=== PATIENT | male | born 1935 | race Caucasian/White ===

== ENCOUNTER 2016-11-02 16:45 | Inpatient (IN) ==
--- NOTE | 2016-11-02 17:56 | Emergency Department Note ---
John Valentine Hilary, am scribing for, and in the presence of, Tyler Ferris MD 17:26. Josy Valentine Phillip K, MD, personally performed the services described in this documentation, ascribed by Flora Lopez in my presence, and it is both accurate and complete [id number] . Arrival - Arrival ED Nursing Triage Note: Brought in by EMS c/o productive cough, congestion, and SOB-onset yesterday. Mode of Arrival: Stretcher Limitations: No Limitations Source: Patient, RN Notes Reviewed - History of Present Illness Onset (ago): day(s) Consistency: constant Severity: mild Severity scale (1-10): 1 <Tyler Ferris - Last Filed: 11/02/16 17:56> <Antoni Gonsalez - Last Filed: 11/02/16 19:36> - Arrival Chief Complaint: Shortness of Breath Stated Complaint: shortness of breath - History of Present Illness HPI Narrative: Pt is a 80 y/o male brought into the ED with c/o SOB and cough which onset yesterday. Pts daughter states that he is spitting up a lot of phlegm, congested , cough and SOB but he denies abdominal pain. She states that he has alzheimers and takes medication for that only. No other complaints or problems stated in the ED. (Flora Lopez) Pt is a 80 y/o male brought into the ED with c/o SOB and cough which onset yesterday. Pts daughter states that he is spitting up a lot of phlegm, congested , cough and SOB but he denies abdominal pain. She states that he has alzheimers and takes medication for that only. No other complaints or problems stated in the ED. (Tyler Ferris) Allergies/Adverse Reactions: Allergies Allergy/AdvReac Type Severity Reaction Status Date / Time No Known Allergies Allergy Verified 04/28/15 11:12 Home Medications: Home Medications Medication Instructions Recorded Confirmed Type Donepezil [Aricept] 10 mg PO BEDTIME #60 tablet 10/10/14 11/02/16 Rx Memantine [Namenda] 10 mg PO BID #60 tablet 10/10/14 11/02/16 Rx Sertraline [Zoloft] 25 mg PO DAILY #30 tablet 10/10/14 11/02/16 Rx OLANZapine TAB [ZyPREXA Tab] 2.5 mg PO BID 11/02/16 11/02/16 History Review of System - Review of System 12 point system: reviewed and no additional remarkable complaints except as stated - Review of System Constitutional: Absent: fever Respiratory: Present: cough, respiratory distress (SOB), other (congestion) Gastrointestinal: Absent: abdominal pain <Tyler Ferris - Last Filed: 11/02/16 17:56> Medical,Surgical,& Family Hx - Medical History Cardio: History of: Hypertension No history of: Aneurysm, Cardiac Dysrhythmia, Cerebrovascular Disease, Congenital Heart Disease, CHF, CAD, [place], Pacemaker, PVD, Valvular Heart Disease, Cardiovascular Problems Psychological: History of: Psychiatric/Substance Abuse Tx (alliance), Psychiatric Problems (DEMENTIA) No history of: Anxiety Disorders, ADHD, Behavior Problems, Bipolar Disorder, Depression, Previous Suicide Attempt, Schizophrenia, Violent Behavior Neurology: History of: Dementia No history of: Brain Aneurysm, Cerebral Hemorrhage, Cerebrovascular Accident , Cerebral Palsy, Migraine, Multiple Sclerosis, Parkinson's Disease, Peripheral Neuropathy, Seizures, TIA, Vertigo, Neurologocal Cancer HEENT: No history of: Ear Problem, Eye Problem, Dental Problems, Glaucoma, Oral Cancer, HEENT Problems Endocrine: History of: Diabetes Mellitus (NIDDM), Dyslipidemia No history of: Adrenal Disease, Diabetes Mellitus (IDDM), Thyroid Disorder, Endocrine Cancer, Endocrine Problems Rheumatology: No history of;: Fibromyalgia, Gout, Myasthenia Gravis, Psoriasis, Rheumatoid Arthritis, Sjogrens, Systemic Lupus Erythematosus, Rheumatological Problems Respiratory: No history of: Asthma, Bronchitis, COPD, Intubation, Obstructive Sleep Apnea , Pulmonary Embolism, Pulmonary Hypertension, Pneumonia, Lung Cancer, Respiratory Problems Renal: No history of: Renal (Kidney) Cancer, Dialysis, Renal Failure, Renal Problems Genitourinary: No history of: Bladder Problem, Kidney Stones, Prostate Problems, Recurring Urinary Tract Infections, Genitourinary Cancer, Problems Gastrointestinal: No history of: Bowel Obstruction, Clostridium Difficile, Crohn's Disease, Diverticulitis/ Diverticulosis, Esophageal Varices, GERD, Gastrointestinal Bleed , Hemorrhoids, Hematochezia, Hepatitis, Liver Problems, Pancreatitis, Polyps, Ulcerative Colitis, Gastrointestinal Cancer, GI Problems Musculoskeletal: No history of: Amputation, Back/Neck Problems, Degenerative Disk Disease, Herniated Disk, Osteoporosis, Musculoskeletal Cancer, Musculoskeletal Problems Hematology: No history of: Anemia, Blood Transfusion Reaction, Bleeding Problems, Clotting Problems, Sickle Cell Disease, Hematologic Cancer, Blood Disorders Reproductive: No histroy: Penile Disorder, Sexually Transmitted Disease, Reproductive Cancer, Reproductive Problems Other: No history of: Anesthesia Reactions, Anaphylaxis, Cancer, Eczema, HIV, Malignant Hyperthermia, MRSA, Vancomycin-Resistant Enterococci, Skin Problems, Miscellaneous Medical Problems - Surgical History Cardiac Surgeries: Patient Denies: Femoral-Popliteal Bypass Graft, Cardiac Catheterization, Cardiac Surgery, Carotid Endarterectomy, Internal Defibrillator, Vascular Access Devices Thoracic Surgeries: Patient denies;: Kidney (Renal Surgery), Lithotripsy, Nephrectomy, Organ Transplant, Lobectomy Neurologic Surgeries: Patient denies: Brain Aneurysm, Cerebral Hemorrhage, Neurologic Surgery HEENT Surgeries: Patient denies: Carotid Endarterectomy, Eye Surgery, Thyroid Surgery, Tonsilectomy & Adenoidectomy Abdominal Surgeries: Patient denies: Abdominal Surgery, Appendectomy, Cholecystectomy, Colonoscopy , Gastric Bypass Surgery, EGD, Hernia Repair, Splenectomy Reproductive Surgeries: Patient denies;: Breast Surgery, Cystoscopy, Genitourinary Surgery, Prostate Surgery, Vasectomy Orthopedic Surgeries: Patient denies;: Implanted Devices, Orthopedic Surgery, Spinal Surgery, Total Hip Replacement, Total Knee Replacement - Family History Family History: Reports;: Family Cancer (sisters breast, daughter breast and ovaries), Family Psychiatric Problems (son and grandson learning disability, grandson -bipolar), Family Stroke (dad and sister) Denies;: Family Anesthesia Reaction, Family Diabetes, Family Heart Disease, Family Hypertension - Social History Smoking Status: Former smoker Frequency of Alcohol Use: None Type of Drug Use: None <Tyler Ferris - Last Filed: 11/02/16 17:56> Exam - General General appearance: alert, in no apparent distress - Head Head exam: Present: atraumatic, normocephalic - Eye Eye exam: Present: normal appearance, PERRL, EOMI - ENT ENT exam: Present: mucous membranes moist, TM's normal bilaterally. Absent: mucous membranes dry - Neck Neck exam: Present: full ROM, trachea midline, tenderness - Chest Chest inspection: Present: symmetric chest wall rise. Absent: tenderness - Respiratory Respiratory exam: Present: rales (diffused in bases). Absent: respiratory distress - Cardiovascular Cardiovascular exam: Present: regular rate, normal rhythm, normal heart sounds. Absent: murmur, rubs, gallop - Abdominal Exam Abdominal exam: Present: soft, normal bowel sounds. Absent: distention, tenderness - Extremities Exam Extremities exam: Present: full ROM. Absent: tenderness - Back Exam Back exam: Present: full ROM. Absent: tenderness - Neurological Exam Neurological exam: Present: alert, oriented X3, CN II-XII intact. Absent: motor sensory deficit - Psychiatric Psychiatric exam: Present: normal affect, normal mood - Skin Skin exam: Present: warm, dry, intact, normal color. Absent: rash <Tyler Ferris - Last Filed: 11/02/16 17:56> Vital Signs: Vital Signs Temperature 96.1 F L 11/02/16 16:52 Pulse Rate 83 11/02/16 18:45 Respiratory Rate 18 11/02/16 18:45 Blood Pressure 129/51 11/02/16 18:45 O2 Sat by Pulse Oximetry 98 11/02/16 18:45 Course <Tyler Ferris - Last Filed: 11/02/16 17:56> - Consultations Time: 19:33 <Antoni Gonsalez - Last Filed: 11/02/16 19:36> Course Narrative: Patient signed out to Dr. Gonsalez at 1800 (Tyler Ferris) - Consultations Consultation #1: Hospitalist will admit patient (Antoni Gonsalez) Results - Labs CBC & BMP: 11/02/16 17:41 11/02/16 17:41 <Antoni Gonsalez - Last Filed: 11/02/16 19:36> Disposition <Tyler Ferris - Last Filed: 11/02/16 17:56> Case discussed with: patient, patient's family Time of Disposition: 19:36 <Antoni Gonsalez - Last Filed: 11/02/16 19:36> Clinical Impression: Dementia of Alzheimer's type with behavioral disturbance, Community acquired pneumonia, Acute bronchiolitis, Acute dyspnea Disposition: Still a Patient Condition: Guarded
[2016-11-02 18:04] LABS: Basophils % 0.2 % (0.0-0.8); Eosinophils % 0.1 % (0.00-10.9); Hematocrit 41.1 VOL% (42.0-52.0); Hemoglobin 13.9 GM/DL (14.0-18.0); Immature Granulocytes % 0.4 %; Immature Granulocytes Absolute 0.04 #; Lymphocytes # 0.8 10*3/uL (1.4-4.0); Lymphocytes % 8.3 % (21.2-54.2); Mean Corpuscular HGB Conc 33.8 GM/DL (32-36); Mean Corpuscular Hemoglobin 33 PG (27-34); Mean Corpuscular Volume 98.1 FL (87-102); Mean Platelet Volume 10.5 FL (9.6-12.0); Monocytes # 0.8 10*3/uL (0.11-0.8); Monocytes % 8.4 % (1.7-12.7); Neutrophils # 7.7 10*3/uL (1.4-7.4); Neutrophils % 82.6 % (38.7-73.9); Platelet Count 119 T/CUMM (130-400); Red Blood Count 4.19 MC/CUMM (3.8-5.5); Red Cell Distribution Width 13.3 % (9.3-17.3); White Blood Count 9.4 T/CUMM (4-12)
--- NOTE | 2016-11-02 18:10 | EKG Report ---
Stationary ECG Study [facility] ER Test Date: 11/02/2016 6:10:25 PM Pat Name: HALLEY LOPEZ Department: Room: Gender: M Security Intern: : 1935 Requested by: Tyler Rajan Order Number: [id number] Reading MD: GEOFFREY CHAWLA Intervals [place] Rate: 73 P: 78 VT: 179 QRS: 84 QRSD: 125 T: 61 QT: 428 QTc: 453 Interpretive Statements SINUS RHYTHM WITH OCCASIONAL SUPRAVENTRICULAR PREMATURE COMPLEXES RIGHT BUNDLE BRANCH BLOCK Electronically Signed On 11-02-16 19:25:01 CDT by GEOFFREY CHAWLA [email or web address]
--- NOTE | 2016-11-02 18:26 | XRay Report ---
Portable chest. Indication: Shortness of breath. Comparison: April 28, 2015. The heart is normal in size. The pulmonary vasculature is normal. The lung qureshi are clear. No pneumothorax or pleural effusion. Nipple shadows over the bases. Degenerative changes of the spinal column and shoulders. Impression: No acute abnormality. PROCEDURE INTERPRETED AT [facility] DEPARTMENT OF RADIOLOGY Final Report Signed by: Dr. Renate Dash
[2016-11-02 18:33] LABS: Albumin 3.7 G/DL (3.4-5.0); Bilirubin,Total 0.7 MG/DL (0.2-1.0); Calcium 8.7 MG/DL (8.5-10.1); Total Protein 7.3 G/DL (6.4-8.3)
[2016-11-02 18:34] LABS: Magnesium 2.2 MG/DL (1.8-2.4); Osmolality,Calculated 284.1 MOS/KG (273-304); Potassium 4.2 MMOL/L (3.5-5.1)
[2016-11-02 19:01] LABS: Apearance,Urine Slightly Hazy (Clear); Bacteria,Urine Occasional /HPF (Few); Bilirubin,Urine Negative (Negative); Blood, Urine Moderate mg/dL (Negative); Calcium Oxalate Crystals,Urine Occasional /HPF (Few); Glucose,Urine (UA) Negative (Negative); Ketones,Urine 5 mg/dL (Negative); Mucus,Urine Occasional /LPF (Occasional); Nitrite,Urine Negative (Negative); Protein,Urine 100 MG/DL; RBC,Urine 3 /HPF (0-4); Squamous Epithelial Cell,Urine Occasional /HPF (0-10); Urine Color Yellow (Yellow); Urine Specific Gravity 1.015 (1.001-1.035); Urine Urobilinogen < 2.0 EU/DL (0.2-1.0); WBC,Urine 7 /HPF (0-6)
[2016-11-02] MEDS ORDERED: cefTRIAXone 1,000 MG in SODIUM CHLORIDE 0.9% 100 ML IV STA (19:35)
[2016-11-02] MEDS ORDERED: AZITHROMYCIN INJ 500 MG in SODIUM CHLORIDE 0.9% 250 ML IV STA (19:35)
[2016-11-02] MEDS ORDERED: AZITHROMYCIN 500 MG VIAL IV ONE (19:43)
[2016-11-02] MEDS ORDERED: ALBUTEROL 2.5 MG/3 ML NEB RESP TX PRN (19:57)
[2016-11-02] MEDS ORDERED: ONDANSETRON 4 MG/2 ML VIAL IV PRN (19:57)
--- NOTE | 2016-11-02 20:11 | Hospitalist History & Physical ---
Assessment and Plan (1) Acute bronchiolitis Status: Acute Current Visit: Yes (2) Acute dyspnea Status: Acute Current Visit: Yes (3) Community acquired pneumonia Status: Acute Current Visit: Yes (4) Dementia of Alzheimer's type with behavioral disturbance Status: Acute Assessment and plan: Our plan for this patient will be admitting him to our service. Although his chest x-ray looks clear by physical exam he appears to have a bronchitis/ pneumonia. Start him on protocol with Rocephin and azithromycin. Have pulmonary to evaluate him for a bronchoscopy. Want to get a swallowing evaluation done on the patient while he is here. We have consulted speech therapy Current Visit: Yes History of Present Illness Chief complaint: O2 sats productive cough History of present illness: Mr. Marr is a 80 year old male with past medical history significant for Alzheimer's presents to our hospital with a chief complaint of cough. Patient' s daughter accompanies him he is a poor historian secondary to his Alzheimer's. There is no history of fever that we know of. He has been having cough 2 days with copious sputum. I was consulted to admit him to the emergency room. Patient's O2 sats have dropped while in the emergency room and he might need O2 supplementation upon discharge. Patient's daughter reports his Alzheimer's was diagnosed several years ago. He is to the point where he has a hard time identifying her. Home Medications Medication Instructions Recorded Confirmed Type Donepezil [Aricept] 10 mg PO BEDTIME #60 tablet 10/10/14 11/02/16 Rx Memantine [Namenda] 10 mg PO BID #60 tablet 10/10/14 11/02/16 Rx Sertraline [Zoloft] 25 mg PO DAILY #30 tablet 10/10/14 11/02/16 Rx OLANZapine TAB [ZyPREXA Tab] 2.5 mg PO BID 11/02/16 11/02/16 History Allergies Allergy/AdvReac Type Severity Reaction Status Date / Time No Known Allergies Allergy Verified 04/28/15 11:12 Medical,Surgical,& Family Hx - Medical History Cardio: History of: Hypertension No history of: Aneurysm, Cardiac Dysrhythmia, Cerebrovascular Disease, Congenital Heart Disease, CHF, CAD, [place], Pacemaker, PVD, Valvular Heart Disease, Cardiovascular Problems Psychological: History of: Psychiatric/Substance Abuse Tx (alliance), Psychiatric Problems (DEMENTIA) No history of: Anxiety Disorders, ADHD, Behavior Problems, Bipolar Disorder, Depression, Previous Suicide Attempt, Schizophrenia, Violent Behavior Neurology: History of: Dementia No history of: Brain Aneurysm, Cerebral Hemorrhage, Cerebrovascular Accident , Cerebral Palsy, Migraine, Multiple Sclerosis, Parkinson's Disease, Peripheral Neuropathy, Seizures, TIA, Vertigo, Neurologocal Cancer HEENT: No history of: Ear Problem, Eye Problem, Dental Problems, Glaucoma, Oral Cancer, HEENT Problems Endocrine: History of: Diabetes Mellitus (NIDDM), Dyslipidemia No history of: Adrenal Disease, Diabetes Mellitus (IDDM), Thyroid Disorder, Endocrine Cancer, Endocrine Problems Rheumatology: No history of;: Fibromyalgia, Gout, Myasthenia Gravis, Psoriasis, Rheumatoid Arthritis, Sjogrens, Systemic Lupus Erythematosus, Rheumatological Problems Respiratory: No history of: Asthma, Bronchitis, COPD, Intubation, Obstructive Sleep Apnea , Pulmonary Embolism, Pulmonary Hypertension, Pneumonia, Lung Cancer, Respiratory Problems Renal: No history of: Renal (Kidney) Cancer, Dialysis, Renal Failure, Renal Problems Genitourinary: No history of: Bladder Problem, Kidney Stones, Prostate Problems, Recurring Urinary Tract Infections, Genitourinary Cancer, Problems Gastrointestinal: No history of: Bowel Obstruction, Clostridium Difficile, Crohn's Disease, Diverticulitis/ Diverticulosis, Esophageal Varices, GERD, Gastrointestinal Bleed , Hemorrhoids, Hematochezia, Hepatitis, Liver Problems, Pancreatitis, Polyps, Ulcerative Colitis, Gastrointestinal Cancer, GI Problems Musculoskeletal: No history of: Amputation, Back/Neck Problems, Degenerative Disk Disease, Herniated Disk, Osteoporosis, Musculoskeletal Cancer, Musculoskeletal Problems Hematology: No history of: Anemia, Blood Transfusion Reaction, Bleeding Problems, Clotting Problems, Sickle Cell Disease, Hematologic Cancer, Blood Disorders Reproductive: No histroy: Penile Disorder, Sexually Transmitted Disease, Reproductive Cancer, Reproductive Problems Other: No history of: Anesthesia Reactions, Anaphylaxis, Cancer, Eczema, HIV, Malignant Hyperthermia, MRSA, Vancomycin-Resistant Enterococci, Skin Problems, Miscellaneous Medical Problems - Surgical History Cardiac Surgeries: Patient Denies: Femoral-Popliteal Bypass Graft, Cardiac Catheterization, Cardiac Surgery, Carotid Endarterectomy, Internal Defibrillator, Vascular Access Devices Thoracic Surgeries: Patient denies;: Kidney (Renal Surgery), Lithotripsy, Nephrectomy, Organ Transplant, Lobectomy Neurologic Surgeries: Patient denies: Brain Aneurysm, Cerebral Hemorrhage, Neurologic Surgery HEENT Surgeries: Patient denies: Carotid Endarterectomy, Eye Surgery, Thyroid Surgery, Tonsilectomy & Adenoidectomy Abdominal Surgeries: Patient denies: Abdominal Surgery, Appendectomy, Cholecystectomy, Colonoscopy , Gastric Bypass Surgery, EGD, Hernia Repair, Splenectomy Reproductive Surgeries: Patient denies;: Breast Surgery, Cystoscopy, Genitourinary Surgery, Prostate Surgery, Vasectomy Orthopedic Surgeries: Patient denies;: Implanted Devices, Orthopedic Surgery, Spinal Surgery, Total Hip Replacement, Total Knee Replacement - Family History Family History: Reports;: Family Cancer (sisters breast, daughter breast and ovaries), Family Psychiatric Problems (son and grandson learning disability, grandson -bipolar), Family Stroke (dad and sister) Denies;: Family Anesthesia Reaction, Family Diabetes, Family Heart Disease, Family Hypertension - Social History Smoking Status: Former smoker Frequency of Alcohol Use: None Type of Drug Use: None ROS unobtainable: due to mental status Exam - Constitutional Vitals: Period Temp Pulse Resp BP Sys/[place] Pulse Ox Last 24 Hr 96.1 F-96.1 F 82-93 18-20 114-135/46-64 92-100 General appearance: normal weight - Head Head exam: Present: normal inspection - Eye Eye exam: Present: EOMI Pupils: Present: TORREY - ENT ENT exam: Present: normal exam - Neck Neck exam: Present: normal inspection - Respiratory Respiratory exam: Present: rhonchi - Cardiovascular Cardiovascular exam: Present: regular rate and rhythm - GI/Abdominal GI/Abdominal exam: Present: normal bowel sounds - Extremities Exam Extremities exam: Present: normal inspection - Back Exam Back exam: Present: normal inspection - Neurological Exam Neurological exam: Present: alert - Psychiatric Psychiatric exam: Present: flat affect - Skin Skin exam: Present: normal color Results - Labs CBC & BMP: 11/02/16 17:41 11/02/16 17:41
[2016-11-02 21:40] LABS: ABG Base Excess 0.7 MMOL/L (-2.5-2.5); ABG HCO3 24.4 MMOL/L (20-26); ABG Oxygen Saturation 69.1 % (95-100); ABG PCO2 45.5 MM HG (35-48); ABG PH 7.371 (7.35-7.45); ABG TCO2 23.2 MMOL/L (23-27)
[2016-11-02 21:48] LABS: Platelet Estimate Decreased
[2016-11-02 22:02] LABS: ABG PO2 36.1 MM HG (80-95)
[2016-11-02] MEDS ORDERED: MORPHINE 2 MG/1 ML SYRINGE IM PRN (22:13)
[2016-11-02] MEDS ORDERED: cefTRIAXone 1,000 MG VIAL ONE (22:31)
[2016-11-02] MEDS ORDERED: ALBUTEROL/IPRATROPIUM 3 ML NEB RESP TX STA (23:34)
[2016-11-02] MEDS: ALBUTEROL/IPRATROPIUM 3 ML NEB RESP TX SCH (23:34)
[2016-11-03] MEDS: DONEPEZIL 5 MG TABLET PO SCH ×2 (00:04→22:23)
[2016-11-03] MEDS: MEMANTINE 10 MG TABLET PO SCH ×3 (00:05→22:23)
[2016-11-03] MEDS: OLANZapine 2.5 MG TABLET PO SCH ×3 (00:05→22:23)
[2016-11-03] MEDS: ENOXAPARIN 40 MG/0.4 ML SYRINGE SUBCUT SCH ×2 (00:05→22:24)
[2016-11-03] MEDS ORDERED: ACETAMINOPHEN 650 MG SUPP RECTAL PRN (04:08)
[2016-11-03 04:18] LABS: Basophils % 0.2 % (0.0-0.8); Hematocrit 39.4 VOL% (42.0-52.0); Hemoglobin 13.1 GM/DL (14.0-18.0); Immature Granulocytes % 0.3 %; Immature Granulocytes Absolute 0.02 #; Lymphocytes # 0.5 10*3/uL (1.4-4.0); Lymphocytes % 8.5 % (21.2-54.2); Mean Corpuscular HGB Conc 33.2 GM/DL (32-36); Mean Corpuscular Hemoglobin 32 PG (27-34); Mean Corpuscular Volume 96.8 FL (87-102); Monocytes # 0.5 10*3/uL (0.11-0.8); Monocytes % 8.9 % (1.7-12.7); NRBC # 0.02 10*3/uL; Neutrophils # 4.7 10*3/uL (1.4-7.4); Neutrophils % 82.1 % (38.7-73.9); Platelet Count 131 T/CUMM (130-400); Red Blood Count 4.07 MC/CUMM (3.8-5.5); Red Cell Distribution Width 13.4 % (9.3-17.3); White Blood Count 5.8 T/CUMM (4-12)
[2016-11-03 04:44] LABS: Calcium 8.7 MG/DL (8.5-10.1)
[2016-11-03] MEDS: SODIUM CHLORIDE 0.9% 1,000 ML IV SCH ×2 (04:52→16:12)
[2016-11-03 04:54] LABS: Platelet Estimate Adequate
[2016-11-03] MEDS: ALBUTEROL/IPRATROPIUM 3 ML NEB RESP TX SCH ×3 (07:26→19:18)
[2016-11-03] MEDS: SERTRALINE 25 MG TABLET PO SCH (10:05)
[2016-11-03] MEDS: PANTOPRAZOLE 40 MG TABLET PO SCH (10:06)
--- NOTE | 2016-11-03 11:02 | Hospitalist Progress Note ---
Assessment and Plan (1) Dementia of Alzheimer's type with behavioral disturbance Status: Chronic Current Visit: Yes (2) Community acquired pneumonia Status: Acute Assessment and plan: Continue azithromycin and rocephin duonebs Current Visit: Yes (3) Acute bronchiolitis Status: Acute Current Visit: Yes (4) Acute dyspnea Status: Acute Current Visit: Yes Hospitalist: Subjective Interval history: No acute events overnight. Patient seen asleep on cpap this morning. Will wake up and respond. He appears comfortable. Exam - Constitutional Vitals: Period Temp Pulse Resp BP Sys/[place] Pulse Ox Last 24 Hr 96.1 F-102.4 F 66-108 16-24 84-143/33-102 70-100 General appearance: normal weight - Head Head exam: Present: normocephalic, atraumatic - Eye Eye exam: Present: EOMI Pupils: Present: TORREY - ENT ENT exam: Present: normal exam - Neck Neck exam: Present: normal inspection - Respiratory Respiratory exam: Present: clear to auscultation bilaterally - Cardiovascular Cardiovascular exam: Present: regular rate and rhythm - GI/Abdominal GI/Abdominal exam: Present: normal bowel sounds, soft. Absent: tenderness, rebound - Extremities Exam Extremities exam: Present: normal inspection - Back Exam Back exam: Present: normal inspection - Skin Skin exam: Present: warm, intact Results - Labs CBC & BMP: 11/03/16 03:51 11/03/16 03:51
[2016-11-03] MEDS: AZITHROMYCIN INJ 500 MG in SODIUM CHLORIDE 0.9% 250 ML IV SCH (20:30)
[2016-11-03] MEDS: cefTRIAXone 1,000 MG in SODIUM CHLORIDE 0.9% 100 ML IV SCH (22:24)
[2016-11-04] MEDS: ALBUTEROL/IPRATROPIUM 3 ML NEB RESP TX SCH ×4 (01:08→19:23)
[2016-11-04 04:34] LABS: Basophils % 0.2 % (0.0-0.8); Hematocrit 35.8 VOL% (42.0-52.0); Hemoglobin 12.1 GM/DL (14.0-18.0); Immature Granulocytes % 0.3 %; Immature Granulocytes Absolute 0.02 #; Lymphocytes % 15.3 % (21.2-54.2); Mean Corpuscular HGB Conc 33.8 GM/DL (32-36); Mean Corpuscular Hemoglobin 34 PG (27-34); Mean Corpuscular Volume 99.2 FL (87-102); Mean Platelet Volume 11.2 FL (9.6-12.0); Monocytes # 0.6 10*3/uL (0.11-0.8); Monocytes % 9.5 % (1.7-12.7); Neutrophils # 4.6 10*3/uL (1.4-7.4); Neutrophils % 74.7 % (38.7-73.9); Platelet Count 100 T/CUMM (130-400); Red Blood Count 3.61 MC/CUMM (3.8-5.5); Red Cell Distribution Width 13.6 % (9.3-17.3); White Blood Count 6.2 T/CUMM (4-12)
[2016-11-04 05:02] LABS: Calcium 8.6 MG/DL (8.5-10.1); Magnesium 2.2 MG/DL (1.8-2.4); Osmolality,Calculated 294.4 MOS/KG (273-304); Potassium 4.2 MMOL/L (3.5-5.1)
[2016-11-04] MEDS: OLANZapine 2.5 MG TABLET PO SCH ×2 (09:03→21:27)
[2016-11-04] MEDS: PANTOPRAZOLE 40 MG TABLET PO SCH (09:03)
[2016-11-04] MEDS: SERTRALINE 25 MG TABLET PO SCH (09:03)
[2016-11-04] MEDS: MEMANTINE 10 MG TABLET PO SCH ×2 (09:03→21:27)
--- NOTE | 2016-11-04 11:28 | Hospitalist Progress Note ---
Assessment and Plan (1) Dementia of Alzheimer's type with behavioral disturbance Status: Chronic Current Visit: Yes (2) Community acquired pneumonia Status: Acute Assessment and plan: Continue azithromycin and rocephin mikie Pulmonary has been consulted Discontinue bipap Current Visit: Yes (3) Acute bronchiolitis Status: Acute Current Visit: Yes (4) Acute dyspnea Status: Acute Current Visit: Yes Hospitalist: Subjective Interval history: No acute events overnight. Patient with bipap on. Will see how he does with it off today. Exam - Constitutional Vitals: Period Temp Pulse Resp BP Sys/[place] Pulse Ox Last 24 Hr 97.3 F-98.2 F 61-95 13-20 97-110/49-56 90-100 General appearance: normal weight - Head Head exam: Present: normocephalic, atraumatic - Eye Eye exam: Present: EOMI Pupils: Present: TORREY - ENT ENT exam: Present: normal exam - Neck Neck exam: Present: normal inspection - Respiratory Respiratory exam: Present: clear to auscultation bilaterally. Absent: wheezes - Cardiovascular Cardiovascular exam: Present: regular rate and rhythm - GI/Abdominal GI/Abdominal exam: Present: normal bowel sounds, soft. Absent: tenderness, rebound - Extremities Exam Extremities exam: Present: normal inspection - Back Exam Back exam: Present: normal inspection - Neurological Exam Neurological exam: Present: alert, oriented X3 - Psychiatric Psychiatric exam: Present: normal affect, normal mood - Skin Skin exam: Present: warm, intact Results - Labs CBC & BMP: 11/04/16 03:34 11/04/16 03:34
--- NOTE | 2016-11-04 13:42 | Pulmonology Consult Note ---
Assessment and Plan (1) Viral upper respiratory illness Status: Acute Assessment and plan: Patient clinically appears to have a viral infection. There is no indication for bronchoscopy, and especially not since he's comfort care. Patient should be set up with home hospice to avoid unnecessary ED visits and hospitalzations which don't really seem in line with that the family is saying he would want Recs: -Scopalamine drops or patch to dry up oral secretions -Sinus rinses and afrin prn for nasal congestion -Dc antibiotics -Wean down oxygen -DC any orders NOT focused on comfort (ie labs, rads, accuchecks, etc) Current Visit: Yes History of Present Illness History of present illness: Mr. Marr is a 80 year old male who presented to the ED, brought in by family for cough and shortness of breath. History mostly obtained from family at bedside. They report that several family members that patient lives with were sick with a viral illness and he shortly became ill afterwards. Patient, when he is able to answer, denies cough or shortness of breath at this time. He endorses some nasal passage blockage and sinus congestion. Family does confirm that he is comfort measures only Home Medications Medication Instructions Recorded Confirmed Type Donepezil [Aricept] 10 mg PO BEDTIME #60 tablet 10/10/14 11/03/16 Rx Memantine [Namenda] 10 mg PO BID #60 tablet 10/10/14 11/03/16 Rx Sertraline [Zoloft] 25 mg PO DAILY #30 tablet 10/10/14 11/03/16 Rx OLANZapine TAB [ZyPREXA Tab] 2.5 mg PO BID 11/02/16 11/03/16 History Allergies Allergy/AdvReac Type Severity Reaction Status Date / Time No Known Allergies Allergy Verified 04/28/15 11:12 ROS unobtainable: due to mental status Exam (Pulmonay) H&P - Constitutional Vitals: Period Temp Pulse Resp BP Sys/Merida Pulse Ox Last 24 Hr 97.3 F-98.2 F 61-93 13-20 97-110/49-56 90-100 General appearance: under weight - Head Head exam: Present: normal inspection - Respiratory Respiratory exam: Absent: accessory muscle use, rales, rhonchi, stridor, wheezes - Cardiovascular Cardiovascular exam: Present: regular rate and rhythm - GI/Abdominal GI/Abdominal exam: Present: normal bowel sounds Medical,Surgical,& Family Hx - Medical History Cardio: History of: Hypertension No history of: Aneurysm, Cardiac Dysrhythmia, Cerebrovascular Disease, Congenital Heart Disease, CHF, CAD, LA, Pacemaker, PVD, Valvular Heart Disease, Cardiovascular Problems Psychological: History of: Psychiatric/Substance Abuse Tx (alliance), Psychiatric Problems (DEMENTIA) No history of: Anxiety Disorders, ADHD, Behavior Problems, Bipolar Disorder, Depression, Previous Suicide Attempt, Schizophrenia, Violent Behavior Neurology: History of: Dementia No history of: Brain Aneurysm, Cerebral Hemorrhage, Cerebrovascular Accident , Cerebral Palsy, Migraine, Multiple Sclerosis, Parkinson's Disease, Peripheral Neuropathy, Seizures, TIA, Vertigo, Neurologocal Cancer HEENT: No history of: Ear Problem, Eye Problem, Dental Problems, Glaucoma, Oral Cancer, HEENT Problems Endocrine: History of: Diabetes Mellitus (NIDDM), Dyslipidemia No history of: Adrenal Disease, Diabetes Mellitus (IDDM), Thyroid Disorder, Endocrine Cancer, Endocrine Problems Rheumatology: No history of;: Fibromyalgia, Gout, Myasthenia Gravis, Psoriasis, Rheumatoid Arthritis, Sjogrens, Systemic Lupus Erythematosus, Rheumatological Problems Respiratory: No history of: Asthma, Bronchitis, COPD, Intubation, Obstructive Sleep Apnea , Pulmonary Embolism, Pulmonary Hypertension, Pneumonia, Lung Cancer, Respiratory Problems Renal: No history of: Renal (Kidney) Cancer, Dialysis, Renal Failure, Renal Problems Genitourinary: No history of: Bladder Problem, Kidney Stones, Prostate Problems, Recurring Urinary Tract Infections, Genitourinary Cancer, Problems Gastrointestinal: No history of: Bowel Obstruction, Clostridium Difficile, Crohn's Disease, Diverticulitis/ Diverticulosis, Esophageal Varices, GERD, Gastrointestinal Bleed , Hemorrhoids, Hematochezia, Hepatitis, Liver Problems, Pancreatitis, Polyps, Ulcerative Colitis, Gastrointestinal Cancer, GI Problems Musculoskeletal: No history of: Amputation, Back/Neck Problems, Degenerative Disk Disease, Herniated Disk, Osteoporosis, Musculoskeletal Cancer, Musculoskeletal Problems Hematology: No history of: Anemia, Blood Transfusion Reaction, Bleeding Problems, Clotting Problems, Sickle Cell Disease, Hematologic Cancer, Blood Disorders Reproductive: No histroy: Penile Disorder, Sexually Transmitted Disease, Reproductive Cancer, Reproductive Problems Other: No history of: Anesthesia Reactions, Anaphylaxis, Cancer, Eczema, HIV, Malignant Hyperthermia, MRSA, Vancomycin-Resistant Enterococci, Skin Problems, Miscellaneous Medical Problems - Surgical History Cardiac Surgeries: Patient Denies: Femoral-Popliteal Bypass Graft, Cardiac Catheterization, Cardiac Surgery, Carotid Endarterectomy, Internal Defibrillator, Vascular Access Devices Thoracic Surgeries: Patient denies;: Kidney (Renal Surgery), Lithotripsy, Nephrectomy, Organ Transplant, Lobectomy Neurologic Surgeries: Patient denies: Brain Aneurysm, Cerebral Hemorrhage, Neurologic Surgery HEENT Surgeries: Patient denies: Carotid Endarterectomy, Eye Surgery, Thyroid Surgery, Tonsilectomy & Adenoidectomy Abdominal Surgeries: Patient denies: Abdominal Surgery, Appendectomy, Cholecystectomy, Colonoscopy , Gastric Bypass Surgery, EGD, Hernia Repair, Splenectomy Reproductive Surgeries: Patient denies;: Breast Surgery, Cystoscopy, Genitourinary Surgery, Prostate Surgery, Vasectomy Orthopedic Surgeries: Patient denies;: Implanted Devices, Orthopedic Surgery, Spinal Surgery, Total Hip Replacement, Total Knee Replacement - Family History Family History: Reports;: Family Cancer (sisters breast, daughter breast and ovaries), Family Psychiatric Problems (son and grandson learning disability, grandson -bipolar), Family Stroke (dad and sister) Denies;: Family Anesthesia Reaction, Family Diabetes, Family Heart Disease, Family Hypertension - Social History Smoking Status: Former smoker Frequency of Alcohol Use: None Type of Drug Use: None Results - Labs CBC & BMP: 11/04/16 03:34 11/04/16 03:34 Lab Results: I have reviewed the past 24 hour labs - Diagnostic Findings Procedure: Chest x-ray: image reviewed by me (reviewed image and report. No evidence of pneumonia)
[2016-11-04] MEDS ORDERED: AZITHROMYCIN 250 MG TABLET PO SCH (21:00)
[2016-11-04] MEDS: DONEPEZIL 5 MG TABLET PO SCH (21:27)
[2016-11-04] MEDS: ENOXAPARIN 40 MG/0.4 ML SYRINGE SUBCUT SCH (21:27)
[2016-11-04] MEDS: cefTRIAXone 1,000 MG in SODIUM CHLORIDE 0.9% 100 ML IV SCH (21:28)
[2016-11-04] MEDS: AZITHROMYCIN INJ 500 MG in SODIUM CHLORIDE 0.9% 250 ML IV SCH (21:28)
[2016-11-04] MEDS: DESITIN 4OZ/NYSTATIN 15 GRAM MIXTURE PASTE TOP SCH (21:34)
[2016-11-05] MEDS: ALBUTEROL/IPRATROPIUM 3 ML NEB RESP TX SCH ×2 (02:52→07:26)
[2016-11-05 05:51] LABS: Basophils % 0.2 % (0.0-0.8); Hematocrit 33.5 VOL% (42.0-52.0); Hemoglobin 10.8 GM/DL (14.0-18.0); Immature Granulocytes % 0.7 %; Immature Granulocytes Absolute 0.04 #; Lymphocytes # 0.7 10*3/uL (1.4-4.0); Lymphocytes % 13.5 % (21.2-54.2); Mean Corpuscular HGB Conc 32.2 GM/DL (32-36); Mean Corpuscular Hemoglobin 33 PG (27-34); Mean Corpuscular Volume 101.5 FL (87-102); Mean Platelet Volume 11.4 FL (9.6-12.0); Monocytes # 0.5 10*3/uL (0.11-0.8); Monocytes % 9.1 % (1.7-12.7); Neutrophils # 4.1 10*3/uL (1.4-7.4); Neutrophils % 76.5 % (38.7-73.9); Platelet Count 116 T/CUMM (130-400); Red Cell Distribution Width 13.5 % (9.3-17.3); White Blood Count 5.4 T/CUMM (4-12)
[2016-11-05 06:14] LABS: Calcium 8.6 MG/DL (8.5-10.1); Magnesium 2.3 MG/DL (1.8-2.4); Potassium 3.7 MMOL/L (3.5-5.1)
[2016-11-05 06:55] LABS: Platelet Estimate Adequate
[2016-11-05] MEDS ORDERED: methylPREDNISolone SOD SUC 40 MG/1 ML VIAL IV SCH (09:00)
--- NOTE | 2016-11-05 09:01 | Pulmonology Progress Note ---
Pulmonary - PN: Subj Interval history: Patient is an 80-year-old white man who is very debilitated with dementia. He apparently has been bedridden and very confused for quite some time. He was brought in with an upper respiratory infection and bronchitis. He now has become poorly responsive. He apparently was using BiPAP over the weekend. Now he is on low-flow oxygen. He is not really responsive at present. He apparently did say a few words earlier. The family does not want heroic measures. He does not seem to be having any respiratory distress at the present time Exam (Progress Note) - Constitutional Vitals: Period Temp Pulse Resp BP Sys/Merida Pulse Ox Last 24 Hr 97.8 F-99.3 F 64-92 14-20 99-109/45-56 90-100 General appearance: under weight, other (He does look chronically ill but is lying comfortably in bed.) - Head Head exam: Present: normal inspection - Eye Eye exam: Absent: scleral icterus Pupils: Present: TORREY - ENT ENT exam: Present: other (He does have dry mucous membrane) - Neck Neck exam: Absent: lymphadenopathy, thyromegaly - Respiratory Respiratory exam: Present: accessory muscle use, rhonchi, other (He has fairly good breath sounds with just very minimal rhonchi.) - Cardiovascular Cardiovascular exam: Present: regular rate and rhythm. Absent: gallop, systolic murmur - GI/Abdominal GI/Abdominal exam: Present: hypoactive bowel sounds, soft. Absent: organomegaly , tenderness - Extremities Exam Extremities exam: Absent: calf tenderness, edema - Neurological Exam Neurological exam: Present: altered (Patient is not very alert at present) - Psychiatric Psychiatric exam: Absent: anxious - Skin Skin exam: Present: warm, dry Results - Labs CBC & BMP: 11/05/16 05:19 11/05/16 05:19 - Diagnostic Findings Procedure: Chest x-ray: image reviewed by me, report reviewed by me (Chest x- ray shows no definite infiltrate) Assessment and Plan (1) Dementia of Alzheimer's type with behavioral disturbance Status: Chronic Assessment and plan: The patient is an elderly man that looks chronically ill and has significant dementia. His family does not want heroic measures. Current Visit: Yes (2) Psychotic disorder Status: Acute Assessment and plan: Patient is not very responsive at the present time. Current Visit: No (3) Acute bronchiolitis Status: Acute Assessment and plan: The patient apparently had some respiratory distress earlier but is doing better now. He seems to be moving air fairly well. I will continue with respiratory therapy and medications and mainly try to keep him comfortable. Current Visit: Yes
[2016-11-05 09:07] VITALS: BP 114/56
[2016-11-05] MEDS: MEMANTINE 10 MG TABLET PO SCH (09:30)
[2016-11-05] MEDS: SERTRALINE 25 MG TABLET PO SCH (09:30)
[2016-11-05] MEDS: PANTOPRAZOLE 40 MG TABLET PO SCH (09:30)
[2016-11-05] MEDS: OLANZapine 2.5 MG TABLET PO SCH (09:30)
--- NOTE | 2016-11-05 09:35 | Hospitalist Progress Note ---
Assessment and Plan (1) Dementia of Alzheimer's type with behavioral disturbance Status: Chronic Current Visit: Yes (2) Community acquired pneumonia Status: Acute Assessment and plan: Continue azithromycin and rocephin duonebs Pulmonary assisting Discontinue bipap Current Visit: Yes (3) Acute bronchiolitis Status: Acute Current Visit: Yes (4) Acute dyspnea Status: Acute Current Visit: Yes Hospitalist: Subjective Interval history: Patient is now off Bipap. This morning he is not as responsive, with shallow respirations. One of his sons is present this morning and reiterates that the family does not want any heroic measures performed. Will continue to treat him for pneumonia and uti. Will also continue current respiratory therapy with duonebs and supplemental oxygen per family's request. Exam - Constitutional Vitals: Period Temp Pulse Resp BP Sys/Merida Pulse Ox Last 24 Hr 97.8 F-99.3 F 64-92 14-20 99-114/45-56 90-100 General appearance: normal weight - Head Head exam: Present: normocephalic, atraumatic - Eye Eye exam: Present: EOMI Pupils: Present: TORREY - ENT ENT exam: Present: normal exam - Neck Neck exam: Present: normal inspection - Respiratory Respiratory exam: Present: clear to auscultation bilaterally - Cardiovascular Cardiovascular exam: Present: regular rate and rhythm - GI/Abdominal GI/Abdominal exam: Present: normal bowel sounds, soft. Absent: tenderness, rebound - Extremities Exam Extremities exam: Present: normal inspection - Back Exam Back exam: Present: normal inspection - Neurological Exam Neurological exam: Present: alert, oriented X3 - Psychiatric Psychiatric exam: Present: normal affect, normal mood - Skin Skin exam: Present: warm, intact Results - Labs CBC & BMP: 11/05/16 05:19 11/05/16 05:19
--- NOTE | 2016-11-05 09:53 | XRay Report ---
Exam: XR chest 1V portable Date: 11/05/2016 8:43 AM Indication: Shortness of breath Comparison: 11/02/2016 Technical:AP Findings: Interstitial alveolar densities present in the basilar regions bilaterally with mild shunt vascularity. Low volume effusions. The heart is mildly prominent. Bony structures reveal no acute findings with lateral marginal osteophytes. Impression: 1. Interval development Bilateral interstitial alveolar densities that suggest component of CHF with shunt vascularity and tiny effusions PROCEDURE INTERPRETED AT [facility] DEPARTMENT OF RADIOLOGY Final Report Signed by: Dr. Toney Ramirez
[2016-11-05] MEDS ORDERED: DEXTROSE 5% NACL 0.45% 1,000 ML IV SCH (10:00)
[2016-11-05] MEDS ORDERED: ALBUTEROL/IPRATROPIUM 3 ML NEB RESP TX SCH (11:00)
[2016-11-05] MEDS: DESITIN 4OZ/NYSTATIN 15 GRAM MIXTURE PASTE TOP SCH (11:28)
--- NOTE | 2016-11-05 14:07 | Discharge Summary ---
Hospital Course - Hospital Course Hospital Course: Mr. Marr is a 80 year old male with past medical history significant for Alzheimer's who presented with a chief complaint of cough. Patient is a poor historian secondary to his Alzheimer's. His daughter provided the history. There is no history of fever that we know of. He had been having cough 2 days with copious sputum. He was admitted to the hospitalist service with acute bronchitis, pneumonia and a urinary tract infection. On admission he was placed on Bipap which was removed on his second day. He originally tolerated this well for over 24 hours. This morning patient noted to be less responsive with shallow breathing. Patient's family made aware of his poor prognosis. Patient's nurse was called to patient's room by family due to agonal breathing. Patient was comfort care, as confirmed by the family on several occasions. He was pronounced at 0959. His family was at his bedside. - Time spent with patient Time with patient DS: Less than 30 minutes (25) Diagnosis - Discharge Diagnosis (1) Dementia of Alzheimer's type with behavioral disturbance Status: Chronic (2) Community acquired pneumonia Status: Acute (3) Acute bronchiolitis Status: Acute (4) Acute dyspnea Status: Acute Discharge Plan - Discharge Data Disposition: - Discharge Medications No Action OLANZapine TAB [ZyPREXA Tab] 2.5 mg PO BID Donepezil [Aricept] 10 mg PO BEDTIME #60 tablet Memantine [Namenda] 10 mg PO BID #60 tablet Sertraline [Zoloft] 25 mg PO DAILY #30 tablet - Follow Up or Referral - Forms/Instructions Exam - Constitutional Vitals: Period Temp Pulse Resp BP Sys/Merida Pulse Ox Last 24 Hr 97.8 F-99.3 F 77-92 16-20 99-114/45-56 90-100 Discharge Results Procedures and tests throughout hospitalization: Pending Orders 11/02/16 17:41 Blood Culture Stat Labs on day of discharge: Labs from last 24 hours 11/05/16 11/05/16 05:19 05:19 WBC 5.4 RBC 3.30 L Hgb 10.8 L Hct 33.5 L MCV 101.5 MCH 33 MCHC 32.2 RDW 13.5 Plt Count 116 L MPV 11.4 Neut % (Auto) 76.5 H Lymph % (Auto) 13.5 L [place] % (Auto) 9.1 Eos % (Auto) 0.0 Baso % (Auto) 0.2 Neut # (Auto) 4.1 Lymph # (Auto) 0.7 L [place] # (Auto) 0.5 Eos # (Auto) 0.0 Baso # (Auto) 0.0 Immature Gran % 0.7 Nucleated RBC % 0.0 Immature Gran # 0.04 Nucleated RBCs # 0.00 Platelet Estimate Adequate Morphology Comment Sodium 150 H Potassium 3.7 Chloride 112 H Carbon Dioxide 32 Anion Gap 9.7 BUN 19 H Creatinine 0.90 GFR Calculation 75 BUN/Creatinine Ratio 21.00 H Glucose 76 Calculated Osmolality 298.0 Calcium 8.6 Magnesium 2.3 Preliminary micro results at discharge 11/02/16 17:41 Blood Culture - Preliminary Blood No growth at 1 day 11/02/16 17:41 Blood Culture - Preliminary Blood No growth at 1 day DS: Provider Date of admission: 11/02/16 19:58 Primary care physician: Gato Fontanez DO Attending physician on admission: Tai Casiano MD Consults: 11/02/16 19:57 Consult to Physician [CONS] Routine Comment: Productive cough and copious sputum Consulting Provider: Lobo Romna Consult to Specialist Group: Pulmonology When should Consulting Provider be notified: In am Person Notified: dr [email or web address] Date Notified: 11/04/16 Time Notified: 08:05 11/02/16 20:06 Consult to Speech Therapy [CONS] Routine Reason for Speech Therapy: Bedside Swallow Eval Discharging clinician: Ayanna Gabriel MD
--- NOTE | 2016-11-06 09:16 | Physician Query Form ---
CLICK EDIT DOCUMENT TO SELECT QUERY ANSWER --> OK --> SIGN Amalia Garces RN, CCDS Certified Clinical Cheese Sprayer W) [phone] (f) [phone] [email or web address] PROVIDERS: Make your selection(s) from the choices in EACH section by typing an "x" and enter comments in the comment section. Please use your independent medical judgment in providing your response. This request does not imply that any particular answer is desired or expected. CLINICAL INDICATORS: (Providers should not edit this section) Documented acute dyspnea and congestion with labored respirations, diffuse rales in bases, "O2 Sats dropped while in the emergency room", bipap placed at 10 liters O2, ABG's show a pO2 of 36.1 with O2 Sat of 69.1 If possible, please further clarify the type and acuity of respiratory diagnosis : ACUITY: ( ) Acute ( ) Chronic ( ) Acute on Chronic TYPE: ( x) Respiratory failure with hypoxia ( ) Respiratory failure with hypercapnia ( ) Respiratory Insufficiency ( ) ARDS (Adult/Acute Respiratory Distress Syndrome) ( ) Other, please specify: ( ) Clinically unable to determine Recognized criteria for respiratory failure PH <7.35 or >7.45 PO2 <60 PCO2 >50 RR >24 O2 Sat <90% on RA or <95% on O2 Use of accessory muscles Unable to speak in full sentences Intubation is not required COMMENTS: PLEASE ALSO DOCUMENT RESPONSE IN PROGRESS NOTES AND/OR DISCHARGE SUMMARY Use of terms such as suspected, likely, or probable (associated with a specific diagnosis that is being evaluated, monitored, or treated as if it exists) are acceptable and can be restated in the discharge summary if not ruled out. MTDD
== END 2016-11-05 09:59 | disposition expired | DRG 189 ==
LOC: EDBD → EDUNIT# → N.ED 16:45 → N.EDINP 19:57 → SUATTDRO 19:58 → N.2E 22:26
PROVIDERS: ADMIT Internal Medicine; ATTEND Internal Medicine